=== PATIENT | female | born 1965 | race Caucasian/White ===

== ENCOUNTER → 2024-12-13 | Day surgery (SDC) | payer MEDICAID ==
[~2024-12-13] VITALS: Ht 152.4 cm; Wt 72.6 kg
[~2024-12-13] MED LIST: AMIT25TA9 PO; ATOR20TA65 PO; BALANCED SALT IRRIG SOLN 15ML ONE; BALANCED SALT IRRIG SOLN COMB1 500ML OP NR; CETI10TA6 PO; CHOL-36 PO; CYCLOPENTOLATE HCL 1% OPHTH DROPS 2ML RIGHTEYE NR; EMPA25TA PO; ESCI-7 PO; FENTANYL CITRATE/PF 50MCG/ML 2ML VIAL ONE; GLIP10TA17 PO; HYALURONATE SODIUM 10MG/ML 0.55ML SYRINGE IO ONE; HYDROMORPHONE HCL/PF 1MG/ML INJ IV PRN; LABETALOL 5MG/ML 4ML INJ IV PRN; MECL-217 PO; MEPERIDINE HCL/PF 25MG/ML CPJ IV PRN; METF-416 PO; MIDAZOLAM HCL 2 MG/2 ML VIAL ONE; ONDANSETRON HCL 4MG/2ML INJ IV PRN; PHENYLEPHRINE HCL 10% OPHTH DROPS 5ML RIGHTEYE NR; PROPOFOL 200MG/20ML VIAL IV ONE; TROPICAMIDE 1% OPHTH DROPS 15ML RIGHTEYE NR; TRYPAN BLUE 0.5 ML DISP.SYRIN IO ONE
[2024-12-13 06:13] LABS: BASOPHILS % 0.4 % (0.0-2.0); EOSINOPHILS % 3.1 % (0.0-5.0); HEMATOCRIT. 38.2 % (36.0-48.0); HEMOGLOBIN. 12.7 g/dL (12.0-16.0); LYMPHOCYTES % 37.5 % (20.0-50.0); MEAN CORPUSCULAR HEMOGLOBIN 30.6 pg (28.0-32.0); MEAN CORPUSCULAR HGB CONC 33.4 g/dL (31.0-37.0); MEAN CORPUSCULAR VOLUME 91.6 fL (81.0-99.0); MEAN PLATELET VOLUME 8.5 fl (7.4-10.4); MONOCYTES % 8.7 % (2.0-8.0); NEUTROPHILS % 50.3 % (40.0-76.0); PLATELET 211 x1000/uL (130-400); RED BLOOD CELL COUNT 4.17 mill/uL (4.2-5.4); RED CELL DISTRIBUTION WIDTH 13.6 % (11.6-14.6); WHITE BLOOD COUNT 8.3 x1000/uL (4.5-11.0)
[2024-12-13 06:21] LABS: CHLORIDE 99 mEq/L (98-107); POTASSIUM 3.6 mEq/L (3.5-5.1); SODIUM 137 mEq/L (136-145)
[2024-12-13 06:22] LABS: CARBON DIOXIDE 27 mEq/L (21-32)
[2024-12-13 06:23] LABS: CALCIUM 9.4 mg/dL (8.7-10.4)
[2024-12-13 06:27] LABS: CREATININE 0.7 mg/dL (0.6-1.0); GLUCOSE 197 mg/dL (70-105); UREA NITROGEN BLOOD 17 mg/dL (9-23)
[2024-12-13] MEDS: SODIUM CHLORIDE 0.9% 1,000 ML IV SCH (06:45)
== END | disposition home or self-care (01) ==
LOC: OR 05:41
PROVIDERS: ATTEND Ophthalmology
DX: E11.36 Type 2 diabetes mellitus with diabetic cataract (principal); H25.89 Other age-related cataract; E78.00 Pure hypercholesterolemia, unspecified; Z79.84 Long term (current) use of oral hypoglycemic drugs; Z79.899 Other long term (current) drug therapy; Z98.890 Other specified postprocedural states
CPT/HCPCS: 66984; 36415; 80048; 85025; J3010; J2250; J2704; J3490; Q9957; V2632